=== PATIENT | male | born 1945 | race Caucasian/White ===

== ENCOUNTER → 2016-10-22 | Outpatient (CLI) | payer MEDICARE ==
[~2016-10-22] VITALS: Ht 170.2 cm; Wt 96.6 kg
[~2016-10-22] MED LIST: ACET65TA OR; AMLO5TAB2 PO; ASPI1TAB PO; ATEN50TA2 OR; BABY81CH OR; CALCTAB22 OR; CALCTAB75 PO; CIPR25SS OR; GEMF600T OR; HYDR12.55 PO; LEVO100T OR; LEVO125T3 PO; LIDOCAINE 2% INJ 100 MG/5 ML SDV (FOR ANES.) As Ordered ONE; LISI10TA4 OR; LOSA50TA20 PO; META0.52 PO; MULT1TAB11 PO; MULTIVIT OR; NS 1,000 ML IV SCH; PANT40TA2 PO; PRAV20TA2 OR; PRAV40TA2 PO; PRIL40CA OR; PROPOFOL 200 MG/20 ML VIAL As Ordered ONE; PROS5TAB OR; [UNRECOGNIZED DRUG - OTHER] OR; omega 3 OR
--- NOTE | 2016-10-22 11:11 | ROOR ---
Patient Name: Garry Terrazas Procedure Date: 10/22/2016 10:53 AM Date of : 1945 Age: 71 Room: OP Gender: Male Note Status: Finalized Procedure: Upper GI endoscopy + Biopsies Indications: Heartburn, Exclusion of Alberto's esophagus Providers: Bassam Mcadams MD Referring MD: Tiffanie Salvador NP Requesting Provider: Medicines: Monitored Anesthesia Care Complications: No immediate complications. Procedure: Pre-Anesthesia Assessment: - The heart rate, respiratory rate, oxygen saturations, blood pressure, adequacy of pulmonary ventilation, and response to care were monitored throughout the procedure. The Endoscope was introduced through the mouth, and advanced to the second part of duodenum. The upper GI endoscopy was accomplished without difficulty. The patient tolerated the procedure well. Findings: The Z-line was variable and was found 40 cm from the incisors. Multiple biopsies were obtained with cold forceps for evaluation to rule out Alberto's Esophagus randomly at the gastroesophageal junction. A small hiatus hernia was present. No other significant abnormalities were identified in a careful examination of the stomach. The exam of the duodenum was otherwise normal. Impression: - Z-line variable, 40 cm from the incisors. - Small hiatus hernia. - Multiple biopsies were obtained at the gastroesophageal junction. - The examination was otherwise normal. Recommendation: - Patient has a contact number available for emergencies. The signs and symptoms of potential delayed complications were discussed with the patient. Return to normal activities tomorrow. Written discharge instructions were provided to the patient. - High fiber diet. - Discharge patient to home. - Continue present medications. - Follow an antireflux regimen. - Return to referring physician. - The findings and recommendations were discussed with the patient's family. Bassam Mcadams MD Bassam Mcadams MD 10/22/2016 11:11:03 AM This report has been signed electronically. Number of Addenda: 0 Note Initiated On: 10/22/2016 10:53 AM Estimated Blood Loss: Estimated blood loss: none.
--- NOTE | 2016-10-22 11:41 | ROOR ---
Patient Name: Garry Terrazas Procedure Date: 10/22/2016 10:54 AM Date of : 1945 Age: 71 Room: [facility] Gender: Male Note Status: Finalized Procedure: Colonoscopy to 25 cms + Hot Snare Polypectomy Indications: High risk colon cancer surveillance: Personal history of colonic polyps Providers: Bassam Mcadams MD Referring MD: Tiffanie Salvador NP Requesting Provider: Medicines: Monitored Anesthesia Care Complications: No immediate complications. Procedure: Pre-Anesthesia Assessment: - The heart rate, respiratory rate, oxygen saturations, blood pressure, adequacy of pulmonary ventilation, and response to care were monitored throughout the procedure. The Colonoscope was introduced through the anus and advanced to the sigmoid colon. The colonoscopy was performed without difficulty. The patient tolerated the procedure well. The quality of the bowel preparation was unsatisfactory. Findings: The perianal and digital rectal examinations were normal. A medium polyp was found at 20 cm proximal to the anus. The polyp was sessile. The polyp was removed with a hot snare. Resection was complete, and retrieval was complete. Multiple small and large-mouthed diverticula were found in the recto-sigmoid colon and in the sigmoid colon. The exam was otherwise without abnormality. Impression: - Preparation of the colon was unsatisfactory. - One medium polyp at 20 cm proximal to the anus, removed with a hot snare. Resected and retrieved. - Diverticulosis in the recto-sigmoid colon and in the sigmoid colon. - The examination was otherwise normal. Recommendation: - Patient has a contact number available for emergencies. The signs and symptoms of potential delayed complications were discussed with the patient. Return to normal activities tomorrow. Written discharge instructions were provided to the patient. - High fiber diet. - Discharge patient to home. - Continue present medications. - Await pathology results. - Telephone GI clinic for pathology results in 1 week. - Repeat colonoscopy for surveillance based on pathology results. - Return to referring physician. - The findings and recommendations were discussed with the patient's family. Bassam Mcadams MD Bassam Mcadams MD 10/22/2016 11:40:55 AM This report has been signed electronically. Number of Addenda: 0 Note Initiated On: 10/22/2016 10:54 AM Estimated Blood Loss: Estimated blood loss: none.
[2016-10-22 12:10] VITALS: BP 138/62
== END ==
LOC: M OPP 10:02
PROVIDERS: ATTEND Internal Medicine Gastroenterology
DX: Z12.11 Encounter for screening for malignant neoplasm of colon (principal); D12.5 Benign neoplasm of sigmoid colon; Z86.010 Personal history of colon polyps; K57.30 Diverticulosis of large intestine without perforation or abscess without bleeding; K44.9 Diaphragmatic hernia without obstruction or gangrene; K22.8 Other specified diseases of esophagus; R12 Heartburn; I10 Essential (primary) hypertension; E78.5 Hyperlipidemia, unspecified; E07.9 Disorder of thyroid, unspecified; Z80.8 Family history of malignant neoplasm of other organs or systems; Z80.0 Family history of malignant neoplasm of digestive organs; Z88.7 Allergy status to serum and vaccine; Z79.82 Long term (current) use of aspirin; Z79.899 Other long term (current) drug therapy; Z87.891 Personal history of nicotine dependence

== ENCOUNTER → 2017-01-15 | Day surgery (SDC) | payer MEDICARE ==
[~2017-01-15] VITALS: Ht 170.2 cm; Wt 97.5 kg
[~2017-01-15] MED LIST changes: +ACETYLCHOLINE OPHTH SOLN 1% 2ML As Ordered ONE; +BALANCED SALT IRRIGATION SOLUTION 500ML BAG (FOR OR EYE MACHINE) As Ordered ONE; +CEFUROXIME 1MG/0.1ML INTRACAMERAL INJ As Ordered ONE; +HEALON DUET (HEALON 10MG/ML 0.55ML & HEALON ENDOCOAT 30MG/ML 0.85ML) As Ordered ONE; +LIDOCAINE 0.75%/EPINEPHRINE 0.025% IN BSS 1ML SYR INTRACAMERAL (OR ONLY) As Ordered ONE; -LIDOCAINE 2% INJ 100 MG/5 ML SDV (FOR ANES.) As Ordered ONE; +LIDOCAINE 4% INJ 5 ML AMP OS ONE; +MIDAZOLAM INJ 2 MG/2 ML VIAL (J2250) As Ordered ONE; -NS 1,000 ML IV SCH; +OFLOXACIN 0.3 % (OCUFLOX) OPTH SOL 5ML OS ONE; +PHENYLEPHRINE 2.5% OPHTH SOL 2ML OS ONE; +POVIDONE-IODINE 5% OPHTH PREP SOL 30ML As Ordered ONE; +PROPARACAINE 0.5% OPHTH SOL 15ML OS ONE; -PROPOFOL 200 MG/20 ML VIAL As Ordered ONE; +TOBRADEX OPHTH OINT 3.5 GM As Ordered ONE; +TROPICAMIDE 1% OPHTH SOLN 2 ML OS ONE; +fentaNYL 100 MCG/2 ML INJECTION (J3010) As Ordered ONE
[2017-01-15 10:10] VITALS: BP 141/65
--- NOTE | 2017-01-15 14:08 | RO ---
DATE OF PROCEDURE: 01/15/2017 PREOPERATIVE DIAGNOSIS: Visually significant nuclear sclerotic cataract left eye. POSTOPERATIVE DIAGNOSIS: Visually significant nuclear sclerotic cataract left eye. PROCEDURE: Cataract extraction with use of phacoemulsification and placement of intraocular lens Eduardo AU00T0, 25.0 diopters, left eye. SURGEON: Gabo Mcadams DO TEXTILE DYER: ANESTHESIA: Local with monitored anesthesia care (MAC). COMPLICATIONS: None. POSTOPERATIVE CONDITION: Stable. INDICATION FOR SURGERY: Blurred vision left eye affecting patient's activities of daily living. DESCRIPTION OF PROCEDURE: The patient was seen in the preoperative area and properly identified. The correct operative eye was identified and marked. Attention was turned to that eye. The patient received topical antibiotics in the preoperative area. The patient then received topical dilating drops consisting of tropicamide and phenylephrine. The patient was then transferred to the operating room. The correct side was reidentified. The patient received topical anesthetics and antibiotics on the surface of the eye. The eye was prepped and draped in a sterile fashion. The upper and lower eyelids were isolated with Tegaderm tape, and the lids were held open with an adjustable speculum. Using a sideport blade, a paracentesis incision was made. Intraocular preservative-free lidocaine was then injected into the anterior chamber. Viscoelastic was then injected into the anterior chamber through the paracentesis. Using a 2.65 mm sharp-tipped keratome, the anterior chamber was entered via a temporal clear corneal incision. A continuous curvilinear capsulorrhexis was created with the aid of a 26-gauge cystotome and Utrata forceps. Hydrodissection was performed with balanced salt solution (BSS) on a blunt cannula until the nucleus was freely mobile. The crystalline lens was phacoemulsified and aspirated. Additional cohesive viscoelastic was placed into the capsular bag to deepen it. An Eduardo AU00T0, 25.0 diopter lens was placed into the capsular bag and confirmed by visualizing the continuous curvilinear capsulorrhexis. Additional irrigation and aspiration was used to remove cortical material and remaining viscoelastic. The clear corneal incision was hydrated with BSS on a blunt cannula. The lens was well positioned. The incisions were then tested for leaks and found to be negative. The eye was then palpated for appropriate pressure and adjusted accordingly with BSS. The eyelid speculum was then carefully removed. Tobradex ointment was placed in the eye. An eye patch and shield were then secured over the eye. The patient tolerated the procedure well and was discharged to the recovery unit in a stable condition. KOJO
== END | disposition home or self-care (01) ==
LOC: M SDC 08:04
PROVIDERS: ATTEND Ophthalmology
DX: H25.12 Age-related nuclear cataract, left eye (principal); I10 Essential (primary) hypertension; E78.5 Hyperlipidemia, unspecified; E03.9 Hypothyroidism, unspecified; K21.9 Gastro-esophageal reflux disease without esophagitis; Z79.82 Long term (current) use of aspirin; Z79.899 Other long term (current) drug therapy; Z88.7 Allergy status to serum and vaccine
CPT/HCPCS: 66984; J2250; J3010; V2632

== ENCOUNTER → 2017-02-05 | Day surgery (SDC) | payer MEDICARE ==
[~2017-02-05] VITALS: Ht 170.2 cm; Wt 97.5 kg
[~2017-02-05] MED LIST changes: +LIDOCAINE 4% INJ 5 ML AMP As Ordered ONE; -LIDOCAINE 4% INJ 5 ML AMP OS ONE; +OFLOXACIN 0.3 % (OCUFLOX) OPTH SOL 5ML OD ONE; -OFLOXACIN 0.3 % (OCUFLOX) OPTH SOL 5ML OS ONE; +PHENYLEPHRINE 2.5% OPHTH SOL 2ML OD ONE; -PHENYLEPHRINE 2.5% OPHTH SOL 2ML OS ONE; +PROPARACAINE 0.5% OPHTH SOL 15ML OD ONE; -PROPARACAINE 0.5% OPHTH SOL 15ML OS ONE; +TROPICAMIDE 1% OPHTH SOLN 2 ML OD ONE; -TROPICAMIDE 1% OPHTH SOLN 2 ML OS ONE
[2017-02-05 08:35] VITALS: BP 144/66
--- NOTE | 2017-02-05 09:42 | RO ---
DATE OF PROCEDURE: 02/05/2017 PREOPERATIVE DIAGNOSIS: Visually significant nuclear sclerotic cataract right eye. POSTOPERATIVE DIAGNOSIS: Visually significant nuclear sclerotic cataract right eye. PROCEDURE: Cataract extraction with use of phacoemulsification and placement of intraocular lens AU00T0, 23.5 diopters, right eye. SURGEON: Gabo Mcadams DO BULK TRUCK DRIVER: ANESTHESIA: Local with monitored anesthesia care (MAC). COMPLICATIONS: None. POSTOPERATIVE CONDITION: Stable. INDICATION FOR SURGERY: Blurred vision right eye affecting patient's activities of daily living. DESCRIPTION OF PROCEDURE: The patient was seen in the preoperative area and properly identified. The correct operative eye was identified and marked. Attention was turned to that eye. The patient received topical antibiotics in the preoperative area. The patient then received topical dilating drops consisting of tropicamide and phenylephrine. The patient was then transferred to the operating room. The correct side was reidentified. The patient received topical anesthetics and antibiotics on the surface of the eye. The eye was prepped and draped in a sterile fashion. The upper and lower eyelids were isolated with Tegaderm tape, and the lids were held open with an adjustable speculum. Using a sideport blade, a paracentesis incision was made. Intraocular preservative-free lidocaine was then injected into the anterior chamber. Viscoelastic was then injected into the anterior chamber through the paracentesis. Using a 2.65 mm sharp-tipped keratome, the anterior chamber was entered via a temporal clear corneal incision. A continuous curvilinear capsulorrhexis was created with the aid of a 26-gauge cystotome and Utrata forceps. Hydrodissection was performed with balanced salt solution (BSS) on a blunt cannula until the nucleus was freely mobile. The crystalline lens was phacoemulsified and aspirated. Additional cohesive viscoelastic was placed into the capsular bag to deepen it. An AU00 T0, 23.5 diopters lens was placed into the capsular bag and confirmed by visualizing the continuous curvilinear capsulorrhexis. Additional irrigation and aspiration was used to remove cortical material and remaining viscoelastic. The clear corneal incision was hydrated with BSS on a blunt cannula. The lens was well positioned. The incisions were then tested for leaks and found to be negative. The eye was then palpated for appropriate pressure and adjusted accordingly with BSS. BSS was used to reinflate the anterior chamber and the pressure was adjusted according. The decision was made to place a single 10-0 nylon suture in the temporal clear corneal incision and the knot was buried. BSS was then used to refill the anterior chamber. The incision was then tested and found to be water tight. The eyelid speculum was then carefully removed. Tobradex ointment was placed in the eye. An eye patch and shield were then secured over the eye. The patient tolerated the procedure well and was discharged to the recovery unit in a stable condition. KOJO
== END | disposition home or self-care (01) ==
LOC: M SDC 05:58
PROVIDERS: ATTEND Ophthalmology
DX: H25.11 Age-related nuclear cataract, right eye (principal); I10 Essential (primary) hypertension; E78.5 Hyperlipidemia, unspecified; E03.9 Hypothyroidism, unspecified; K21.9 Gastro-esophageal reflux disease without esophagitis; Z79.899 Other long term (current) drug therapy; Z79.82 Long term (current) use of aspirin
CPT/HCPCS: 66984; J2250; J3010; V2632

== ENCOUNTER → 2017-12-08 | Outpatient (REF) | payer MEDICARE, OTHER ==
[2017-12-08 20:17] LABS: APPEARANCE, URINE CLEAR (CLEAR); BACTERIA, URINE AUTO NEGATIVE (NEGATIVE); BILIRUBIN, URINE AUTO NEGATIVE (NEGATIVE); BLOOD, URINE BLOOD NEGATIVE (NEGATIVE); COLOR, URINE STRAW (YELLOW); GLUCOSE, URINE (UA) AUTO NEGATIVE (NEGATIVE); KETONE, URINE AUTO NEGATIVE (NEGATIVE); LEUKOCYTE ESTERASE, URINE AUTO NEGATIVE (NEGATIVE); NITRITE, URINE AUTO NEGATIVE (NEGATIVE); PROTEIN, URINE AUTO NEGATIVE (NEGATIVE); RBC, URINE AUTO 0 /HPF (0-3); SPECIFIC GRAVITY URINE AUTO 1.005 (1.002-1.035); SQUAMOUS EPITHELIAL CELL UR AU 0 /HPF (0-6); UROBILINOGEN, URINE AUTO 0.2 mg/dL (0.0-2.0); WBC, URINE AUTO 1 /HPF (0-3)
== END ==
LOC: M SMT 16:51
DX: N40.1 Benign prostatic hyperplasia with lower urinary tract symptoms (principal)
CPT/HCPCS: 81001

== ENCOUNTER → 2017-12-10 | Outpatient (CLI) | payer MEDICARE, OTHER | LOC: M SMT 10:13 | DX: N40.1 Benign prostatic hyperplasia with lower urinary tract symptoms (principal) | CPT/HCPCS: 76857 ==

== ENCOUNTER → 2018-01-25 | Outpatient (REF) | payer MEDICARE | LOC: M SMT 17:00 | DX: R39.9 Unspecified symptoms and signs involving the genitourinary system (principal) | CPT/HCPCS: 88108 ==

== ENCOUNTER → 2019-01-21 | Outpatient (REF) | payer MEDICARE ==
[~2019-01-21] MED LIST changes: -ACETYLCHOLINE OPHTH SOLN 1% 2ML As Ordered ONE; -AMLO5TAB2 PO; +AMLO5TAB6 PO; -ASPI1TAB PO; +ASPI81TA26 PO; -BALANCED SALT IRRIGATION SOLUTION 500ML BAG (FOR OR EYE MACHINE) As Ordered ONE; -CEFUROXIME 1MG/0.1ML INTRACAMERAL INJ As Ordered ONE; -HEALON DUET (HEALON 10MG/ML 0.55ML & HEALON ENDOCOAT 30MG/ML 0.85ML) As Ordered ONE; -LEVO125T3 PO; +LEVO125T4 PO; -LIDOCAINE 0.75%/EPINEPHRINE 0.025% IN BSS 1ML SYR INTRACAMERAL (OR ONLY) As Ordered ONE; -LIDOCAINE 4% INJ 5 ML AMP As Ordered ONE; -LOSA50TA20 PO; +LOSA50TA88 PO; -MIDAZOLAM INJ 2 MG/2 ML VIAL (J2250) As Ordered ONE; -OFLOXACIN 0.3 % (OCUFLOX) OPTH SOL 5ML OD ONE; -PANT40TA2 PO; +PANT40TA3 PO; -PHENYLEPHRINE 2.5% OPHTH SOL 2ML OD ONE; -POVIDONE-IODINE 5% OPHTH PREP SOL 30ML As Ordered ONE; -PROPARACAINE 0.5% OPHTH SOL 15ML OD ONE; -TOBRADEX OPHTH OINT 3.5 GM As Ordered ONE; -TROPICAMIDE 1% OPHTH SOLN 2 ML OD ONE; -fentaNYL 100 MCG/2 ML INJECTION (J3010) As Ordered ONE
[2019-01-21 13:56] LABS: INFLUENZA A AMPLIFICATION NEGATIVE (NEGATIVE); INFLUENZA B AMPLIFICATION NEGATIVE (NEGATIVE)
== END ==
LOC: M LAB REF 12:23
PROVIDERS: ATTEND Nurse Practitioner Adult Health
DX: J06.9 Acute upper respiratory infection, unspecified (principal)

== ENCOUNTER → 2019-02-11 | Outpatient (CLI) | payer MEDICARE ==
--- NOTE | 2019-02-11 11:03 | REP ---
Chest x-ray: Two views. History: Hypoxemia. Comparison chest x-ray: October 30, 2010. Findings: The lungs are exposed at a somewhat low level of inspiration. Crowded markings are seen on the frontal view in the bases as a result. The bases appear clear on lateral radiograph. No infiltrate is seen. Heart is not enlarged. There is an old healed rib fracture noted on the right. The right distal clavicle has been resected and there are degenerative changes in the left shoulder. These findings are unchanged. Impression: No active disease. Relatively low level of inspiration. Electronically Signed by Jose Alfredo You MD 02/11/2019 10:55 A
== END ==
LOC: M SMT 10:23
PROVIDERS: ATTEND Internal Medicine Pulmonary Disease
DX: R09.02 Hypoxemia (principal)

== ENCOUNTER → 2019-02-18 | Outpatient (CLI) | payer MEDICARE ==
--- NOTE | 2019-02-21 16:08 | SLEEPHOME ---
DATE OF PROCEDURE: 02/18/2019 ORDERED BY: Dr. Fortune Diagnostic home sleep testing was performed due to concern for the obstructive sleep apnea syndrome. For testing, a nocturnal T3 respiratory monitoring device was used. Continuous record was made of pulse, oxygen saturation, airflow, chest, abdominal strain and body position. 9 hours and 59 minutes of data were reviewed. There were 7 hours and 13 minutes marked as time in bed. During the interval marked time in bed, there were 52 respiratory events identified of 10 seconds in duration or greater for a respiratory event index of 7.2 per hour. The events were primarily obstructive. Baseline pulse rate 58 beats per minute, pulse rate ranged 47 to 91. Baseline saturation 87%. Lowest oxygen saturation achieved 79%. Testing was performed in both the supine and nonsupine positions. IMPRESSION: Abnormal home sleep testing with repetitive respiratory events and oxygen desaturations to 79% with a respiratory event index of 7.2 is consistent with the obstructive sleep apnea syndrome. RECOMMENDATIONS: The patient should be encouraged to undergo a formal sleep evaluation and in laboratory pressure titration.
== END ==
LOC: M SLEEP HO 09:38
PROVIDERS: ATTEND Internal Medicine Pulmonary Disease
DX: G47.30 Sleep apnea, unspecified (principal)

== ENCOUNTER → 2019-03-01 | Outpatient (CLI) | payer MEDICARE ==
--- NOTE | 2019-03-01 07:14 | PFTRPT ---
Height: 67.00 Inches Weight: 215.00 Lbs BSA: 2.09 Diagnosis: R09.02 DATE OF STUDY: 03/01/2019 ORDERED BY: Dr. Dot Fortune Spirometry: Pre and post bronchodilator study of excellent technical quality. Forced vital capacity normal. FEV1 in proportion. Obstructive index is, therefore, normal. Flow Volume Loop: Expiratory limb of the flow volume loop is normal. No significant bronchodilator response identified. Lung Volumes: Total lung capacity normal. Residual volume in proportion. Diffusing Capacity: Diffusing capacity, although reduced, is appropriate for alveolar volume. Hemoglobin: Hemoglobin acceptable at 14.1. Airway Mechanics: Airway resistance and conductance are normal. IMPRESSION: Some degree of diffusing capacity impairment requires clinical correlation. MTDD
== END ==
LOC: M CARPUL 06:24
PROVIDERS: ATTEND Internal Medicine Pulmonary Disease
DX: R09.02 Hypoxemia (principal)

== ENCOUNTER 2019-04-06 05:42 | Day surgery (SDC) | payer MEDICARE ==
[~2019-04-06] VITALS: Ht 170.2 cm; Wt 97.5 kg
[~2019-04-06 05:42] MED LIST changes: +CALC-190 PO; +DITR5TAB PO; +MULTCAP PO
[2019-04-06] MEDS ORDERED: LIDOCAINE 1% MDV 20ML VIAL SQ PRN (06:00)
[2019-04-06] MEDS ORDERED: LR 1,000 ML IV ONE (06:15)
[2019-04-06] MEDS ORDERED: EPINEPHrine 1MG/ML INJ 30ML MD-VIAL As Ordered ONE (07:02)
[2019-04-06] MEDS ORDERED: fentaNYL 100 MCG/2 ML INJECTION (J3010) As Ordered ONE (07:08)
[2019-04-06] MEDS ORDERED: ONDANSETRON 4MG/2ML VIAL (J2405) As Ordered ONE (07:09)
[2019-04-06] MEDS ORDERED: dexameTHASONE 4 MG/ML 1ML VIAL (J1100) As Ordered ONE (07:09)
[2019-04-06] MEDS ORDERED: LIDOCAINE 2% INJ 100 MG/5 ML SDV (FOR ANES.) As Ordered ONE (07:09)
[2019-04-06] MEDS ORDERED: PROPOFOL 200 MG/20 ML VIAL As Ordered ONE (07:09)
[2019-04-06] MEDS ORDERED: ROCURONIUM BROMIDE 50 MG/5 ML VIAL As Ordered ONE (07:09)
[2019-04-06] MEDS ORDERED: MIDAZOLAM INJ 2 MG/2 ML VIAL (J2250) As Ordered ONE (07:09)
[2019-04-06] MEDS ORDERED: ceFAZolin 1GM INJ (J0690 PER 500MG) As Ordered ONE (07:44)
[2019-04-06] MEDS ORDERED: BUPIVACAINE HCL 0.25% 10 ML VIAL As Ordered ONE (08:46)
[2019-04-06] MEDS ORDERED: BUPIVACAINE LIPOSOME/PF 1.3% 20ML VIAL (13.3MG/ML)(EXPAREL)(C9290 PER1MG) As Ordered ONE (08:46)
[2019-04-06] MEDS: BUPIVACAINE/EPIN 0.25% 30 ML VIAL As Ordered ONE ×2 (08:50→09:22)
[2019-04-06] MEDS ORDERED: ACETAMINOPHEN 1000MG 100ML IV BTL (OFIRMEV) (J0131 PER 10MG) As Ordered ONE (09:07)
[2019-04-06] MEDS ORDERED: SUGAMMADEX SODIUM 500 MG/5 ML VIAL (BRIDION) As Ordered ONE (09:11)
[2019-04-06] MEDS ORDERED: ONDANSETRON 4MG/2ML VIAL (J2405) IV PRN (10:15)
[2019-04-06] MEDS ORDERED: MORPHINE 10 MG/ML 1ML VIAL (J2270) IV PRN (10:15)
[2019-04-06] MEDS ORDERED: LR 1,000 ML IV SCH (10:15)
[2019-04-06] MEDS ORDERED: METOCLOPRAMIDE INJ 10MG/2ML VIAL (J2765) IV PRN (10:15)
[2019-04-06] MEDS ORDERED: oxyCODONE 5MG TAB PO PRN (10:15)
[2019-04-06] MEDS ORDERED: fentaNYL 100 MCG/2 ML INJECTION (J3010) IV PRN (10:15)
[2019-04-06 11:30] VITALS: BP 145/65
--- NOTE | 2019-04-07 12:32 | RO ---
DATE OF PROCEDURE: 04/06/2019 PREOPERATIVE DIAGNOSIS: Left shoulder impingement, acromioclavicular (AC) joint arthritis, subacromial impingement. POSTOPERATIVE DIAGNOSIS: Left shoulder impingement, acromioclavicular (AC) joint arthritis, subacromial impingement. PROCEDURE PERFORMED: Left shoulder open acromioclavicular joint resection, left shoulder open subacromial decompression. SURGEON: Dr. Sherif Thomas BUCKLE ATTACHING MACHINE OPERATOR: Garry Duffy, physician critical care physician assistant. ANESTHESIA: General. ESTIMATED BLOOD LOSS: Less than 30 mL, replaced with crystalloid. COMPLICATIONS: None. INDICATIONS: Discomfort in the left shoulder. Previous history of discomfort in the right shoulder consistent with impingement and AC joint arthritis, the patient responded very well to an open procedure and he advocates the same thing now. He has radiographic evidence of impingement. CONSENT: Reviewed in detail including a edis discussion of pathology involved, the procedure proposed, alternatives including doing nothing, and risks including but not limited to pain, failure, infection, bleeding, blood loss, incomplete relief of symptoms, need for additional surgery and other issues. The patient agrees to proceed. Also talked specifically about whether or not the patient wanted to see one of our arthroscopic sports medicine surgeons, he declined and requested the open procedure since he did well previously. OPERATIVE COURSE: Identified in holding area, site and side verified, brought to the operating room, once anesthesia was administered he was positioned in the beach-chair position for exposure of the left shoulder. Prepped and draped in the usual fashion. Line of the incision, saber incision anteriorly, 6 cm long, infiltrated with 0.25% Marcaine with epinephrine. Mr. Duffy stood over the shoulder. I stood in the axillary position. Incision made with a 10 blade and developed down through skin and subcuticular tissues to the deltoid fascia. The deltoid fascia was exposed so that I could palpate the acromioclavicular joint and the dorsal acromion. Next, Bovie cautery was utilized to open the acromioclavicular joint and also reflect a cuff of tissue off of the anterior acromion. Next, the acromioclavicular joint was exposed. The oscillating saw was utilized to remove the distal 1.5 cm of the distal clavicle which was quite impressively arthritic with large spurs. Oscillating saw was utilized to remove the anterior 5 mm of acromion as well as the subacromial border. At this stage, I was able to have Mr. Duffy place the shoulder through a range motion while I inspected the rotator cuff. Modest synovectomy was accomplished. No rotator cuff tear was noted. Next, irrigation was accomplished. Fascial tissues were reapproximated to bony tunnels through the acromion. The acromioclavicular joint fascia was reapproximated with interrupted #1 stitch. Next, the deep dermis was reapproximated with #2-0 Vicryl, #3-0 Vicryl utilized on skin, followed by Prineo dressing. Next, general anesthesia was reversed. The patient was noted to be in good condition and moving all four extremities. He was moved to the recovery room in good condition in a sling. For further details, please refer to the medical record. Mr. Duffy participated in the entirety case in the capacity of after school program assistant.
== END 2019-04-06 11:45 | disposition home or self-care (01) ==
LOC: M SDC 05:42
PROVIDERS: ATTEND Orthopaedic Surgery
DX: M75.42 Impingement syndrome of left shoulder (principal); I10 Essential (primary) hypertension; E03.9 Hypothyroidism, unspecified; K21.9 Gastro-esophageal reflux disease without esophagitis; E78.5 Hyperlipidemia, unspecified; J44.9 Chronic obstructive pulmonary disease, unspecified; Z79.899 Other long term (current) drug therapy; Z79.82 Long term (current) use of aspirin; Z87.891 Personal history of nicotine dependence
CPT/HCPCS: 23415; C9290; J0131; J0690; J1100; J2250; J2405; J3010

== ENCOUNTER → 2019-07-13 | Outpatient (CLI) | payer MEDICARE ==
--- NOTE | 2019-07-14 19:55 | SLEEPCENT ---
DATE OF PROCEDURE: 07/13/2019 ORDERED BY: Dr. Dot Fortune Nocturnal polysomnography was performed for evaluation of sleep physiology in this patient with a history of excessive somnolence and nonrestorative sleep who has comorbidities of acid reflux, obstructive lung disease, hypothyroidism and hypertension. 7 hours and 36 minutes of data were reviewed. There were 348 minutes of sleep identified. Sleep latency was mildly prolonged at 53 minutes. Rapid eye movement (REM) latency was normal at 112 minutes. Sleep architecture was fair with some fragmentation. There were four REM cycles noted. Overall sleep efficiency was 77.5%. The electrocardiogram showed a sinus rhythm with an average heart rate of 52 beats per minute. Rate ranged 42-94. There were occasional premature ventricular contractions (PVCs) noted. EEG showed reasonably normal waveforms for awake and sleep stages. There were 27 respiratory events identified of 10 seconds in duration or greater for an apnea-hypopnea index at the upper limit of normal at 4.6. The events were obstructive, primarily hypopneas, not exclusive to sleep stage but REM clustering was certainly appreciated. They were not associated with specific body postures. Snoring was noted over the entire course of the study. Respiratory related arousals occurred 4.8 times per hour and oxygen desaturations occurred on five occasions below 85%. There was some limb activity but limb movement arousal index was only 1.4. IMPRESSION: Borderline nocturnal polysomnography with significant respiratory patterning, apnea-hypopnea index of 4.6, respiratory disturbance index of 4.8 is strongly suggestive of obstructive sleep apnea syndrome. RECOMMENDATIONS: Interventions to optimize upper airway tone may be helpful at addressing the patient's snoring and apneic episodes. If sleep symptoms progress, repeat testing has been shown more sensitive to identify mild obstructive sleep apnea.
== END ==
LOC: M SLEEP 19:47
PROVIDERS: ATTEND Internal Medicine Pulmonary Disease
DX: G47.30 Sleep apnea, unspecified (principal); R06.83 Snoring

== ENCOUNTER → 2020-09-07 | Outpatient (CLI) | payer SELFPAY ==
[~2020-09-07] MED LIST changes: +AMLO1TAB24 PO; -AMLO5TAB6 PO; +PANT40TA29 PO; -PANT40TA3 PO
== END ==
LOC: M LABSMTC 13:26
PROVIDERS: ATTEND Pediatrics
DX: Z20.828 Contact with and (suspected) exposure to other viral communicable diseases (principal)

== ENCOUNTER → 2022-03-07 | Outpatient (CLI) | payer MEDICARE, SELFPAY ==
[~2022-03-07] MED LIST changes: +HYDR-3490 PO; +LOSA100T45 PO; +LOSA50TA28 PO; -LOSA50TA88 PO; +OMEG10005 PO; +OXYB5TAB10 PO; +SPIR-10 PO; +VITMTA PO
== END ==
LOC: M LABSMTC 09:27
PROVIDERS: ATTEND Anesthesiology
DX: Z01.812 Encounter for preprocedural laboratory examination (principal); Z20.822 Contact with and (suspected) exposure to COVID-19

== ENCOUNTER 2022-03-12 10:00 | Day surgery (SDC) | payer MEDICARE ==
[~2022-03-12] VITALS: Ht 170.2 cm; Wt 92.1 kg
[~2022-03-12 10:00] MED LIST changes: +LIDOCAINE 2% 100MG/5ML SDV (FOR ANES.) As Ordered ONE; +NS 1,000 ML IV ONE; +fentaNYL 100 MCG/2 ML INJECTION As Ordered ONE; +propofoL 500 MG/50 ML VIAL As Ordered ONE
[2022-03-12 12:43] VITALS: BP 141/65
== END 2022-03-12 12:43 | disposition home or self-care (01) ==
LOC: M OPP 10:00
PROVIDERS: ATTEND Internal Medicine Gastroenterology
DX: K63.5 Polyp of colon (principal); K57.30 Diverticulosis of large intestine without perforation or abscess without bleeding; K64.0 First degree hemorrhoids; R19.4 Change in bowel habit; Z86.010 Personal history of colon polyps; K29.60 Other gastritis without bleeding; R12 Heartburn; Z79.02 Long term (current) use of antithrombotics/antiplatelets; Z79.82 Long term (current) use of aspirin; Z79.899 Other long term (current) drug therapy; Z87.891 Personal history of nicotine dependence
CPT/HCPCS: 43239; 45380; 88305; 88342; J3010

== ENCOUNTER → 2022-12-18 | Outpatient (REF) | payer MEDICARE ==
[~2022-12-18] MED LIST changes: -LIDOCAINE 2% 100MG/5ML SDV (FOR ANES.) As Ordered ONE; -NS 1,000 ML IV ONE; -fentaNYL 100 MCG/2 ML INJECTION As Ordered ONE; -propofoL 500 MG/50 ML VIAL As Ordered ONE
== END ==
LOC: M LAB REF 11:23
PROVIDERS: ATTEND Internal Medicine
DX: I12.9 Hypertensive chronic kidney disease with stage 1 through stage 4 chronic kidney disease, or unspecified chronic kidney disease (principal)

== ENCOUNTER → 2023-01-07 | Outpatient (CLI) | payer MEDICARE | LOC: M RAD 11:05 | PROVIDERS: ATTEND Internal Medicine Nephrology | DX: N17.9 Acute kidney failure, unspecified (principal) ==

== ENCOUNTER → 2024-10-18 | Outpatient (REF) | payer MEDICARE ==
[~2024-10-18] MED LIST changes: -LOSA100T45 PO; +LOSA100T46 PO; -OXYB5TAB10 PO; +OXYB5TAB14 PO
[2024-10-18 13:35] LABS: PHOSPHORUS LEVEL 3.1 MG/DL (2.4-5.1)
[2024-10-18 13:42] LABS: URIC ACID 6.7 MG/DL (3.7-9.2)
== END ==
LOC: M LAB REF 12:18
PROVIDERS: ATTEND Internal Medicine
DX: N18.31 Chronic kidney disease, stage 3a (principal)

== ENCOUNTER → 2025-02-03 | Outpatient (CLI) | payer MEDICARE | LOC: M WUC 09:27 | PROVIDERS: ATTEND Nurse Practitioner Family | DX: R06.02 Shortness of breath (principal) ==

== ENCOUNTER → 2025-04-25 | Outpatient (REF) | payer MEDICARE ==
[~2025-04-25] MED LIST changes: -PRAV40TA2 PO; +PRAV40TA85 PO
[2025-04-25 15:07] LABS: PHOSPHORUS LEVEL 2.3 MG/DL (2.4-5.1)
[2025-04-25 16:17] LABS: PTH INTACT 36.2 PG/ML (18.5-88.0)
== END ==
LOC: M LAB REF 13:21
PROVIDERS: ATTEND Internal Medicine
DX: N18.31 Chronic kidney disease, stage 3a (principal)